=== PATIENT | female | born 1995 | race Hispanic/Latino ===

== ENCOUNTER 2023-08-27 14:00 | Outpatient (RCR) | payer OTHER, SELFPAY ==
--- NOTE | 2023-08-07 11:23 | OPREHPOC ---
Outpatient Therapy Plan of Care This is a Multidisciplinary Plan of Care that may contain components documented by all disciplines (PT, OT, and ST.) PT Problem 1 PT Problem #1 Knowledge Deficit PT Goal 1 Goal 1. Patient will perform independent HEP Target Visit 2 PT Problem 2 PT Problem #2 Pain PT Goal 1 Goal 1. Pain with all daily activities no higher than 4 /10 Target Visit 5 PT Problem 3 PT Problem #3 Impaired Strength PT Goal 1 Goal 1. Hip abduction to 4+/5 bernie to reduce pain with ambulation Target Visit 5 PT Problem 4 PT Problem #4 Impaired Gait PT Goal 1 Goal 1. Patient able to perform 2 minute walk test without increased pain Target Visit 5
--- NOTE | 2023-08-07 11:23 | PTOPEVAL1 ---
Assessment and note entered by Cecilia Stockton DPT Evaluation Information Assessment Status Evaluation Subjective Information Pt reports anterior pelvic pain that started about a month ago. Highest pain 8/10 and lowest 0/10. Denies n/t. Pt is 30 weeks . Pain increases with prolonged walking, rolling over in bed, getting out of a car. Very minimal back pain. This is patient's first . She previously did not have any pain or limitations. Patient goal: get rid of the pain. Returns to MD in 2 weeks. Reported Pain Level Pain Score Mild Pain: Carrera Urrutia Assessment PT Clinical Summary The patient is presenting to skilled therapy at 30 weeks with anterior pubic pain. She presents with tenderness to her pubic symphysis, decreased hip strength, and gait impairments which are contributing to her pain with activities like walking, rolling over, and car transfers. She will benefit from therapy as her progresses to reduce pain and improve function. Plan of Care Interventions Gait Training,Hot Pack/Cold Pack,Manual Therapy, Neuro Re-education,Patient/Caregiver Education, Therapeutic Activities,Therapeutic Exercise PT Services Indicated Yes Treatment Frequency and 1 time a week for 5 visits Duration These treatments will address the objective and functional deficits as defined above. The patient will be advanced safely and appropriately in order for the patient to progress towards his/her prior level of function. Additional exercises will be introduced and as well as a comprehensive home exercise program upon discharge, if needed, ?to ensure carryover of functional gains achieved in the clinic. This treatment plan has been reviewed and agreement upon by the patient.
--- NOTE | 2023-09-10 13:27 | PTOPDC ---
Assessment and note entered by Cecilia Stockton, DPT Evaluation Information Assessment Status Discharge - Pt Not Present Subjective Information - Assessment PT Clinical Summary The patient is self discharging at this time as she is feeling better. Plan of Care PT Services Indicated No
== END 2023-09-10 13:53 | disposition home or self-care (01) ==
LOC: ANHPT 14:00
PROVIDERS: PCP Obstetrics & Gynecology; Visit Provider Obstetrics & Gynecology
DX: R10.2 Pelvic and perineal pain (principal)
CPT/HCPCS: 97112; 97140; 97161

== ENCOUNTER 2023-09-10 19:10 | Observation (INO) | payer OTHER, SELFPAY ==
--- NOTE | 2023-09-10 19:10 | OBADM ---
This patient, Livia Garcia, admitted to the OB room OB Post 113 for observation. Patient/family oriented to hospital policies and general routines including ID bracelet, bed and alarms, visiting hours, pain management, procedures, bathroom and other care routines, personal items, smoking policy, room service/diet, and visiting hours. Patient/Family are encouraged to report perceived risks to care and to ask questions if they do not understand what they are told or what they should do.
[2023-09-10 19:37] VITALS: BP 108/68; PULSE 106
--- NOTE | 2023-09-10 19:52 | PC.NURSE ---
Called Dr. Maddox. Informed of pt admission for leaking of fluid. ROM plus negative. NST reactive. July D/C home.
[2023-09-10 22:04] VITALS: BMI 21.5
--- NOTE | 2023-09-30 12:27 | PM.OBTRLD ---
OB - Triage/Final Diagnosis Visit Information Comments/Additional reasons for admission: I have assessed the risk for this patient, Livia Garcia, and determined that she would benefit from observation care. Final Diagnosis (1) Vaginal discharge during in third trimester: Code(s): O26.893 - Other specified related conditions, third trimester; N89.8 - Other specified noninflammatory disorders of vagina Status: Acute
== END 2023-09-10 20:00 | disposition home or self-care (01) ==
PROVIDERS: Admitting Provider Obstetrics & Gynecology; PCP Obstetrics & Gynecology; Visit Provider Obstetrics & Gynecology
DX: O26.893 Other specified pregnancy related conditions, third trimester (principal); N89.8 Other specified noninflammatory disorders of vagina; Z3A.34 34 weeks gestation of pregnancy
CPT/HCPCS: 59025; 84112; G0379

== ENCOUNTER 2023-10-01 13:36 | Observation (INO) | payer OTHER, SELFPAY ==
[2023-10-01 15:56] VITALS: BMI 21.7
--- NOTE | 2023-10-01 15:59 | PC.NURSE ---
Dr. Bazzi notified of SVE of when patient arrived to hospital and still the same 2 hours later. Patient denies any vaginal bleeding or leaking of fluids. Feeling baby move and reactive tracing. Okay to discharge
--- NOTE | 2023-10-02 10:11 | PM.OBTRLD ---
OB - Triage/Final Diagnosis Visit Information Comments/Additional reasons for admission: I have assessed the risk for this patient, Livia Garcia, and determined that she would benefit from observation care. Evaluation Vital signs: Vital Signs - 24 hr 10/01/23 15:56 Oxygen Delivery Room Air Final Diagnosis (1) Uterine contractions during : Code(s): O47.9 - False labor, unspecified Status: Acute
== END 2023-10-01 16:11 | disposition home or self-care (01) ==
PROVIDERS: Admitting Provider Obstetrics & Gynecology; Visit Provider Obstetrics & Gynecology
DX: O47.9 False labor, unspecified (principal)
CPT/HCPCS: G0378; G0379

== ENCOUNTER 2023-10-13 04:54 | Inpatient (IN) | payer OTHER, SELFPAY ==
[2023-10-13] VITALS (135 sets, daily range): BP systolic 84–159; BP diastolic 48–81; PULSE 48–138; RESP 12–18; TEMP 36.6–37.5; O2SAT 78–100; BMI 20.9
--- NOTE | 2023-10-13 05:18 | LDADM ---
This patient, Livia Garcia, was admitted to Labor/Delivery/Recovery 109 on 10/13/23 at 04:54. Plans for labor, pain management and were discussed with patient. Patient/family oriented to hospital policies and general routines including ID bracelet, bed and alarms, visiting hours, pain management, procedures, bathroom and other care routines, personal items, smoking policy, room service/diet and guest tray routines, security routines, and visiting hours. Patient/Family are encouraged to report perceived risks to care and to ask questions if they do not understand what they are told or what they should do. See OBIX for further documentation.
[2023-10-13 05:28] LABS: Basophils Absolute Auto 0.1 K/mm3 (0.0-0.1); Basophils Percent Auto 0.5 % (0.2-1.2); Eosinophils Absolute Auto 0.1 K/mm3 (0-0.3); Hematocrit 33.6 % (37.0-47.0); Hemoglobin 11.2 g/dL (12.0-15.0); Immature Granulocyte Absolute 0.22 K/mm3 (0.00-0.031); Immature Granulocyte Percent A 2.4 % (0-0.5); Lymphocytes Absolute Auto 1.24 K/mm3 (0.9-3.2); Lymphocytes Percent Auto 13.3 % (18.3-44.2); Mean Corpuscular HGB Conc 33.3 g/dl (32-36); Mean Corpuscular Hemoglobin 31.5 pg (26-34); Mean Corpuscular Volume 94.4 fl (80-100); Mean Platelet Volume 11.3 fl (7.4-10.4); Monocytes Absolute Auto 0.8 K/mm3 (0.1-0.6); Monocytes Percent Auto 8.4 % (2.6-8.5); Neutrophils Absolute Auto 6.9 K/mm3 (1.3-6.7); Neutrophils Percent Auto 74.4 % (45.5-73.1); Platelet Count Result 226 k/mm3 (150-375); Red Blood Count 3.56 M/mm3 (4.2-5.4); White Blood Count 9.3 K/mm3 (4.5-10.0)
[2023-10-13] MEDS: LACTATED RINGERS 1,000 ML 125 ML IV CONT ×2 (05:42→10:40)
[2023-10-13] MEDS: OXYTOCIN 30 UNITS/NS 500 ML 30 UNITS/500 ML BAG IV CONT (05:48)
[2023-10-13 06:19] LABS: HIV 1/2 Ab P24 Ag Result Negative (Negative)
[2023-10-13] MEDS: ONDANSETRON INJ 4 MG/2 ML VIAL IV PUSH (08:40)
[2023-10-13] MEDS: OXYTOCIN 30 UNITS/NS 500 ML 30 UNITS/500 ML BAG 125 UNITS IV CONT (12:48)
--- NOTE | 2023-10-13 13:30 | P.PCNOB_ITS ---
OB - Vaginal Delivery Note Procedure Delivery date: 10/13/23 Events: Elective Induction of Labor Induction method: Per Pitocin Protocol Delivery augmentation: Rupture of Membranes Delivery monitor: External FHT and External Uterine Route of delivery: Episiotomy description: None Laceration Description: Perineal - 2nd Degree Delivery repair: vicryl Specimen: No Quantitative Blood Loss (ml): 500 ((bleeding from vaginal laceration)) Anesthesia type: Epidural (with local for laceration repair) Disposition: Floor Complications: No immediate complications Narrative: See H&P and notes for details on patient's admission and labor. She progressed to complete cervical dilation and at the appropriate time began pushing. With adequate expulsive efforts by the mother, the baby's head was delivered without difficulty. Nuchal cord was not present. The baby's right shoulder was anterior and delivered under the pubic symphysis without difficulty. The posterior should er and the rest of the baby delivered without difficulty. The umbilical cord was doubly clamped and cut after 60 seconds of delayed cord clamping. Care of the infant was then assumed by the nursing staff. [place] Baby Date of : 10/13/23 Weeks of gestation at delivery: 39 Infant gender: Female presentation: vertex position: Left Occiput Anterior Placenta delivery description: Expressed Cord Vessel Description: 3 Vessels and Delayed Cord Clamping
[2023-10-13 13:35] LABS: Rapid Plasma Reagin Non-Reactive (NonReactive)
[2023-10-13] MEDS: ACETAMINOPHEN 325 MG TABLET 650 MG PO ×2 (14:52→15:51)
--- NOTE | 2023-10-13 19:01 | OBPPTRN ---
1556 Patient transferred to post room #291 via W/C. Support person present. Oriented to unit, room, information board, rooming in, admission packet and security measures. Patient verbalizes understanding.
[2023-10-14 00:09] VITALS: TEMP 38.1
[2023-10-14] MEDS: IBUPROFEN 600 MG TABLET PO ×3 (00:09→16:25)
[2023-10-14 00:10] VITALS: TEMP 38.1
[2023-10-14] MEDS: ACETAMINOPHEN 325 MG TABLET 650 MG PO ×3 (00:10→16:26)
[2023-10-14 00:31] VITALS: BP 130/73; PULSE 117; RESP 24; TEMP 39.4; O2SAT 99
[2023-10-14] MEDS: AMPICILLIN 2 GM/NS 100 ML 2 GM/100 ML BAG IVPB (00:49)
[2023-10-14 01:19] VITALS: TEMP 38.3
[2023-10-14] MEDS: GENTAMICIN SULFATE INJ 315 MG in DEXTROSE 5% 100 ML 100 MG IVPB (01:42)
[2023-10-14 01:52] LABS: Influenza A QL RT-PCR Negative (Negative); Influenza B QL RT-PCR Negative (Negative); RSV RNA, RT-PCR Negative (Negative); SARS-CoV-2 RNA PCR Positive (Negative)
--- NOTE | 2023-10-14 02:06 | PC.NURSE ---
0200- vending stand supervisor Kaylynn aware that pt is covid positive- training intern Isabela informed her- instructions given to set up isolation cart in front of pts room, pt not to come out of room, N95 masks to be worn by all staff entering room.
[2023-10-14 06:00] LABS: Hemoglobin 8.5 g/dL (12.0-15.0)
[2023-10-14 07:45] VITALS: BP 112/58; PULSE 85; RESP 16; TEMP 36.8; O2SAT 100
[2023-10-14] MEDS: MULTIVIT/MIN/PREN/FOL AC/IRON TABLET 1 TAB PO (08:04)
[2023-10-14] MEDS: DOCUSATE SODIUM 100 MG CAPSULE PO ×2 (08:04→16:25)
[2023-10-14] MEDS: POLYSACCHARIDE IRON COMPLEX 150 MG CAPSULE PO ×2 (08:04→16:25)
--- NOTE | 2023-10-14 13:54 | WPDANLDPN2 ---
Anes-Prog Note L&D Date/Time: 10/14/23 13:54 Neuro status: Neuro function grossly intact. Cardiovascular status: normal Respiratory status: normal Airway patency: baseline Mental status: baseline Post-Op hydration status: normal Vital Signs: Last Vital Signs Temp 36.8 C 10/14/23 07:45 Pulse 85 10/14/23 07:45 Resp 16 10/14/23 07:45 BP 112/58 L 10/14/23 07:45 Pulse Ox 100 10/14/23 07:45 O2 Del Method Room Air 10/13/23 15:56 Pain score (VAS): 0 Post-procedural complaints: none Patient feedback: Patient satisfied with anesthetic care.
--- NOTE | 2023-10-14 14:43 | PC.NURSE ---
0750 Introductions were made, then consulted with patient to assess needs related to . Mother led the conversation with her?plans to feed?her and the?experience so far. Encouraged understanding of the benefits of skin to skin (demonstrating unwrapping infant and placing upright on her chest), stimulating with massage touch, changing positions to encourage wakefulness, how to watch for early feeding cues, responsive feeding, feeding on demand (aiming for 8-12 times in 24 hours, about every 2-3 hours) duration of feeding, signs of adequate intake/output and how to record on the feeding sheet. Mother works well with her with encouragement and education. Reviewed positioning and ear, shoulder, hip alignment, supporting the breast to facilitate a deep latch, asymmetrical latch (off-center), leading with the chin with a big, open, wide gape and body close to mother. Infant latched optimally to the right breast in football position @ 0755. Education given to the mother of how to visualize the suckling (with good rocking jaw motion), swallows (dropping of the lower jaw) and how to listen for drinking at the breast (the ka sound). Infant was able to maintain latch without pain to mother protecting the nipple with optimal positioning and latching. Reviewed comfort measures of healing with a warm, wet washcloth to rinse breast, then leave open to air-dry, good handwashing when or touching the breast/nipples to prevent infection. Mother voiced understanding of skin to skin, stimulating with massage touch, responsive feedings, hand expressed colostrum, talking to to encourage if it has been 2 -2.5 hours since the start of the last , to call if infant does not latch, or if there is discomfort with . Mother voiced understanding of information, demonstrated learning and will call if there is a request for assistance. Primary RN in room as well. 1240 RN checked in with patient and baby has been well, no complaints of pain and baby is having adequate output. Patient had initially wanted to do breast and bottle feed, this RN did measure mother's nipples for correct flange size and placement, kit and breast pump taken to room, will assist mother if she decides or needs to use breast pump. Mother did test positive for Covid so supplies were taken and left in room in case they are needed. RN to check back in with Primary RN.
--- NOTE | 2023-10-14 16:47 | PM.OBPNVD ---
OB - PN: Subj Subjective Date/time seen: 10/14/23 08:15 Interval history: PPD#1 Had fever overnight, denies other symptoms s/p 1 dose of abx, COVID positive no URI symptoms , doing well emptying bladder without issue OB - PN: Obj Data Labs 10/14/23 04:39 Labs: Laboratory Results - last 24 hr 10/14/23 10/14/23 00:56 04:39 Hgb 8.5 L Hct 26.0 L Influenza A (RT-PCR) Negative Influenza B (RT-PCR) Negative RSV (RT-PCR) Negative SARS-CoV-2 RNA (RT-PCR) Positive A OB - PN A/P Assessment and Plan (1) (spontaneous vaginal delivery): Code(s): O80 - Encounter for full-term uncomplicated delivery Status: Acute (2) COVID-19 affecting childbirth: Code(s): O98.52 - Other viral diseases complicating childbirth; U07.1 - COVID-19 Status: Acute Assessment and Plan: - afebrile - asymptomatic - contact/droplet precautions Plan day: 1 Plan: routine care Time Spent With Patient Time: Total time spent is greater than 50% in coordination of care (as documented) at patient's floor/unit and/or counseling patient: Review of Systems Review of Systems: All systems reviewed & are unremarkable except as noted in HPI and below Exam Const: General: comfortable and no acute distress Orientation/consciousness: patient oriented x3 Resp: Effort & Inspection: normal respiratory effort
--- NOTE | 2023-10-14 16:53 | PM.OBDSVD ---
DS: Admitting Diagnosis Discharge Date 10/15/23 Admitting Diagnosis elective induction of labor DS: Discharge Diagnosis Discharge Diagnosis (1) COVID-19 affecting childbirth: Code(s): O98.52 - Other viral diseases complicating childbirth; U07.1 - COVID-19 Status: Acute (2) (spontaneous vaginal delivery): Code(s): O80 - Encounter for full-term uncomplicated delivery Status: Acute OB - DS: Summary OB Procedures : None OB Procedures Intrapartum: Spontaneous Vag Delivery OB Procedures: : None and Antibiotics Peripartum Data Laceration Description: Perineal - 2nd Degree Episiotomy description: None Time Spent with Patient Time attestation: Total time spent providing and/or coordinating discharge services: DS: Data Data Completed and Pending Labs on day of discharge: Labs from last 24 hours 10/14/23 10/14/23 04:39 00:56 Hgb 8.5 L Hct 26.0 L Influenza A (RT-PCR) Negative Influenza B (RT-PCR) Negative RSV (RT-PCR) Negative SARS-CoV-2 RNA (RT-PCR) Positive A Discharge Plan Discharge Attending physician on discharge: Shankar Bazzi Discharging Clinician: Shankar Bazzi Patient Disposition: Home, Self-Care Activity: may shower, as tolerated and pelvic rest Diet: as tolerated Patient Instructions: Antibiotic Form Stand Alone Forms: General Discharge Information Follow-up/Referrals: Shankar Bazzi MD [Primary Care Provider] - 4 Weeks Discharge Medications: New docusate sodium 100 mg Capsule 100 mg PO BID PRN (Reason: Constipation) Qty: 60 0RF ibuprofen 600 mg Tablet 600 mg PO Q6H PRN (Reason: Cramping) Qty: 30 0RF Continued ferrous sulfate 325 mg (65 mg iron) Tablet 325 mg PO DAILY Classic 28 mg iron- 800 mcg Tablet 1 tablet PO DAILY Date of admission: 10/13/23 04:54 Primary Care Provider: Shankar Bazzi Admitting Provider: Shankar Bazzi Attending physician on admission: Shankar Bazzi Condition: Stable
--- NOTE | 2023-10-14 17:56 | PC.NURSE ---
1630 Mother called out for assistance, she had been trying for 15-20 mins and baby would not latch for her, dad was now holding baby. She requested to now use a breast pump and would like to supplement with formula at this time. Per mother she would still like to breastfeed but wants the the pump to use if baby does not effectively feed. Breast pump provided due to mother request. Instructions given on cleaning, care, usage, that there should be no pain, pumping schedule for milk production, collection, and storage of human milk. Patient was assessed for correct placement, flange size, to pump for comfort and nipple stretching/stimulation for adequate milk production. Parents are encouraged to record the pumping schedule on the feeding sheet.?Mother voiced understanding of the education shared along with mom/baby guide and the pump measurement, flange fit handout for additional resource information. Reported to the Primary RN.
[2023-10-14 18:45] VITALS: BP 97/63; PULSE 110; RESP 16; TEMP 37; O2SAT 98
[2023-10-15 09:10] VITALS: BP 112/67; PULSE 94; RESP 20; TEMP 37
--- NOTE | 2023-10-15 10:00 | PC.NURSE ---
Per patient's primary RN, she is just bottle feeding and not putting baby to breast or pumping. Due to patient being COVID positive, primary RN reviewed outpatient resources if needed after discharge. No further need from services at this time.
[2023-10-15] MEDS: DOCUSATE SODIUM 100 MG CAPSULE PO (10:11)
[2023-10-15] MEDS: IBUPROFEN 600 MG TABLET PO (10:11)
[2023-10-15] MEDS: MULTIVIT/MIN/PREN/FOL AC/IRON TABLET 1 TAB PO (10:11)
[2023-10-15] MEDS: POLYSACCHARIDE IRON COMPLEX 150 MG CAPSULE PO (10:11)
[2023-10-15] MEDS: TETANUS,DIPHTHERIA,AC PERTUSSIS ADULT (0.5 ML) BOOSTRIX IM (10:12)
--- NOTE | 2023-10-15 12:24 | PC.NURSE ---
Called pt to schedule follow-up appt. Originally, did not schedule appt d/t mom Covid (+), but director, Roni Granados RN confirmed that pt and baby should come back for follow-up.
[2023-10-16 15:54] VITALS: BP 110/74; PULSE 89; RESP 18; TEMP 36.6; O2SAT 99
== END 2023-10-15 11:08 | disposition home or self-care (01) | DRG 560 ==
LOC: ANHLDR 05:06 → ANHOB2 15:57
PROVIDERS: Obstetrics & Gynecology; Admitting Provider Obstetrics & Gynecology; PCP Obstetrics & Gynecology; Visit Provider Obstetrics & Gynecology
DX: O98.52 Other viral diseases complicating childbirth (principal); U07.1 COVID-19; O70.1 Second degree perineal laceration during delivery; Z3A.39 39 weeks gestation of pregnancy; Z37.0 Single live birth
CPT/HCPCS: 36415; 85014; 85018; 85025; 86592; 86703; 86850; 86900; 86901; 87637; 90715; A9270; G0432; J0290; J1580; J2405; J2590; J2795; J7040; J7120